=== PATIENT | female | born 1995 | race Caucasian/White ===

== ENCOUNTER 2016-10-26 08:48 | Emergency (ER) | payer BC ==
[2016-10-26 09:16] VITALS: BP 127/75
--- NOTE | 2016-10-26 10:34 | UC ---
Shoulder Pain HPI - HPI Summary HPI Summary: Intermittent left shoulder , back wrist and arm pain no chest, abd, urinary pain or SOB or fever, no n/v/d---Does do repetitive work at a ho register, boy friend has had a viral illness - History of Current Complaint Chief Complaint: UCUpperExtremity Stated Complaint: LEFT SHOULDER PAIN Time Seen by Provider: 10/26/16 10:19 Hx Obtained From: Patient Hx Last Menstrual Period: unknown ?: No Onset/Duration: Gradual Onset, Lasting Days, Still Present Timing: Intermittent Episode Lasting - fleeting episodes Severity Initially: Mild Severity Currently: Mild Location Of Pain: Is Discrete @ - as described Pain Intensity: 3 Pain Scale Used: 0-10 Numeric Character: Aching Aggravating Factor(s): Movement Alleviating Factor(s): Nothing Associated Signs And Symptoms: Positive: Negative Related History: Dominant Hand Right - Risk Factors Non-Orthopedic Risk Factor: Negative DVT Risk Factors: Estrogen Septic Arthritis Risk Factor: Negative - Allergies/Home Medications Allergies/Adverse Reactions: Allergies Allergy/AdvReac Type Severity Reaction Status Date / Time Penicillins Allergy Hives Verified 10/26/16 09:09 Home Medications: Home Medications Fluticasone NASAL SPRAY 50MCG* [Flonase NASAL SPRAY 50MCG*] 2 spray BOTH NARES DAILY PRN 10/26/16 [History Confirmed 10/26/16] Medroxyprogesterone Acetate (A [Depo-Provera] 400 mg IM ONCE 10/26/16 [History Confirmed 10/26/16] PMH/Surg Hx/FS Hx/Imm Hx Previously Healthy: Yes - Surgical History Surgical History: None - Family History Known Family History: Positive: None Family History: no family history of cardio vascular or bleeding disorders - Social History Occupation: Employed Full-time - casino cashier at [employer] Lives: With Family Alcohol Use: None Substance Use Type: None Smoking Status (MU): Never Smoked Tobacco - Immunization History Most Recent Influenza Vaccination: unsure. Review of Systems Constitutional: Negative Skin: Negative, Rash ENT: Negative Respiratory: Negative Cardiovascular: Negative Gastrointestinal: Negative Genitourinary: Negative Motor: Negative Neurovascular: Negative Musculoskeletal: Arthralgia Neurological: Negative Psychological: Negative All Other Systems Reviewed And Are Negative: Yes Physical Exam Triage Information Reviewed: Yes Appearance: Well-Appearing, No Pain Distress, Well-Nourished Vital Signs: Initial Vital Signs Temp 98.4 F 10/26/16 09:10 Pulse 90 10/26/16 09:10 Resp 14 10/26/16 09:10 BP 127/75 10/26/16 09:10 Pulse Ox 100 10/26/16 09:10 Vital Signs Reviewed: Yes Eye Exam: Normal Eyes: Positive: Conjunctiva Clear ENT Exam: Normal ENT: Positive: Normal ENT inspection, Hearing grossly normal, Pharynx normal, TMs normal. Negative: Nasal congestion, Nasal drainage, Tonsillar swelling, Tonsillar exudate, Trismus, Muffled/hoarse voice Neck exam: Normal Neck: Positive: Supple, Nontender, No Lymphadenopathy Respiratory Exam: Normal Respiratory: Positive: Chest non-tender, Lungs clear, Normal breath sounds, No respiratory distress, No accessory muscle use Cardiovascular Exam: Normal Cardiovascular: Positive: RRR, No Murmur, Pulses Normal, Brisk Capillary Refill Musculoskeletal Exam: Normal Musculoskeletal: Positive: Strength Intact, ROM Intact, No Edema Neurological Exam: Normal Neurological: Positive: Alert, Muscle Tone Normal Psychological Exam: Normal Skin Exam: Normal Shoulder Course/Dx - Course Course Of Treatment: Heat, ibuprofen, increase fluids, follow with pcp re-check prn - Differential Dx/Diagnosis Differential Diagnosis/HQI/PQRI: Rotator Cuff Injury, Tendonitis, Other - myalgia Provider Diagnoses: Myalgia Discharge - Discharge Plan Condition: Stable Disposition: HOME Prescriptions: Ibuprofen TAB* [Motrin TAB* 800 MG] 800 mg PO Q8H PRN #40 tab PRN Reason: Pain Patient Education Materials: Ibuprofen (By mouth), Musculoskeletal Pain (ED), Heat Pack Application (ED) Referrals: Rissa Li MD [Primary Care Provider] - 3 Days
== END 2016-10-26 10:33 | disposition home or self-care (01) ==
LOC: UCCORT 08:48
DX: S46.902A Unspecified injury of unspecified muscle, fascia and tendon at shoulder and upper arm level, left arm, initial encounter (principal); S66.802A Unspecified injury of other specified muscles, fascia and tendons at wrist and hand level, left hand, initial encounter; S29.002A Unspecified injury of muscle and tendon of back wall of thorax, initial encounter; X50.3XXA Overexertion from repetitive movements, initial encounter; M79.1 Myalgia; Z88.0 Allergy status to penicillin
CPT/HCPCS: 99212; G0463

== ENCOUNTER 2017-01-26 15:34 | Emergency (ER) | payer BC ==
[2017-01-26 15:44] VITALS: BP 123/65
--- NOTE | 2017-01-26 16:24 | UC ---
Abdominal Pain Female HPI - HPI Summary HPI Summary: Pain in L lateral abdomen and in back, only notices when she is moving or lifting things. First noticed 4 days ago, denies known injury. Is worried about appendix as her coworkers told her it was on her L side. No fever, vomiting, diarrhea, or pain at rest. Normal appetite. - History of Current Complaint Chief Complaint: UCAbdominalPain Stated Complaint: PAIN LEFT SIDE Time Seen by Provider: 01/26/17 16:00 Hx Obtained From: Patient Hx Last Menstrual Period: unknown ?: No Onset/Duration: Gradual Onset, Lasting Days Timing: Intermittent Episodes Lasting: - sec Severity Initially: Mild Severity Currently: Mild Location: Other - L side of abdomen Radiates: Yes Radiates to: Back Character: Sharp - brief Aggravating Factor(s): Movement Alleviating Factor(s): Nothing Associated Signs and Symptoms: Positive: Back Pain. Negative: Fever, Cough, Constipation, Blood in Stool, Urinary Symptoms, Decreased Appetite, Vaginal Bleeding, Vaginal Discharge, Nausea, Vomiting Allergies/Adverse Reactions: Allergies Allergy/AdvReac Type Severity Reaction Status Date / Time Penicillins Allergy Hives Verified 01/26/17 15:44 PMH/Surg Hx/FS Hx/Imm Hx Previously Healthy: Yes - Surgical History Surgical History: None - Family History Known Family History: Positive: None Family History: no family history of cardio vascular or bleeding disorders - Social History Occupation: Employed Part-time Alcohol Use: None Substance Use Type: None Smoking Status (MU): Never Smoked Tobacco - Immunization History Most Recent Influenza Vaccination: unsure. Review of Systems Constitutional: Negative Skin: Negative Eyes: Negative ENT: Negative Respiratory: Negative Cardiovascular: Negative Gastrointestinal: Negative Genitourinary: Negative Motor: Negative Neurovascular: Negative Musculoskeletal: Negative Neurological: Negative Psychological: Negative All Other Systems Reviewed And Are Negative: Yes Physical Exam Triage Information Reviewed: Yes Appearance: Well-Appearing, No Pain Distress, Well-Nourished Vital Signs: Initial Vital Signs Temp 98.4 F 01/26/17 15:39 Pulse 95 01/26/17 15:39 Resp 16 01/26/17 15:39 BP 123/65 01/26/17 15:39 Pulse Ox 100 01/26/17 15:39 Vital Signs Reviewed: Yes Eye Exam: Normal Eyes: Positive: Conjunctiva Clear ENT Exam: Normal ENT: Positive: Normal ENT inspection, Hearing grossly normal, Pharynx normal, TMs normal Dental Exam: Normal Neck exam: Normal Respiratory Exam: Normal Respiratory: Positive: Chest non-tender, Lungs clear, Normal breath sounds, No respiratory distress, No accessory muscle use Cardiovascular Exam: Normal Cardiovascular: Positive: RRR, No Murmur Abdomen Description: Positive: Nontender - mild discomfort with palpating L pblique muscle, No Organomegaly, Soft. Negative: CVA Tenderness (R), CVA Tenderness (L), Distended, Guarding Musculoskeletal Exam: Normal Musculoskeletal: Positive: Strength Intact, ROM Intact Neurological Exam: Normal Neurological: Positive: Alert Psychological Exam: Normal Skin Exam: Normal Abd Pain Female Course/Dx - Differential Dx/Diagnosis Provider Diagnoses: L abdominal muscle strain. elevated blood pressure due to discomfort Discharge - Discharge Plan Condition: Stable Disposition: HOME Patient Education Materials: Muscle Strain (ED) Referrals: Rissa Li MD [Primary Care Provider] - Additional Instructions: As we discussed, there were no worrisome symptoms for infection or organ problems. Though your exam suggests a muscle or tendon strain, you should go right to the emergency department if you develop fever, severe pain, vomiting, or if you otherwise worsen. We have NOT ruled out severe problems.
== END 2017-01-26 16:39 | disposition home or self-care (01) ==
LOC: UCCORT 15:34
DX: S39.011A Strain of muscle, fascia and tendon of abdomen, initial encounter (principal); X58.XXXA Exposure to other specified factors, initial encounter; Y93.9 Activity, unspecified; Y92.9 Unspecified place or not applicable; R03.0 Elevated blood-pressure reading, without diagnosis of hypertension; Z32.02 Encounter for pregnancy test, result negative; Z88.0 Allergy status to penicillin
CPT/HCPCS: 81003; 84702; 99211; G0463

== ENCOUNTER 2017-03-11 15:04 | Emergency (ER) | payer BC ==
[2017-03-11 15:54] VITALS: BP 125/66
--- NOTE | 2017-03-11 16:12 | UC ---
Throat Pain/Nasal Herve HPI - HPI Summary HPI Summary: complaint of feeling pressure in the front and top of her head since 03/07/17 nasal congestion and PND running down the back of her throat denies cough, sore throat, ear pain , fever denies headache denies dizziness feels like there is a bump on the back of her head hit head in the head on 02/25/17 by a table and was seen at [facility] - discharged after evaluation took some OTC sinus medication on saturday with relief - History of Current Complaint Chief Complaint: UCGeneralIllness Stated Complaint: HEAD PRESSURE-SINUSES? Time Seen by Provider: 03/11/17 16:02 Hx Obtained From: Patient, Family/Tai Chi Instructor Hx Last Menstrual Period: has been on Depo; last inj. 10/2016 - Allergies/Home Medications Allergies/Adverse Reactions: Allergies Allergy/AdvReac Type Severity Reaction Status Date / Time Penicillins Allergy Hives Verified 03/11/17 15:54 Home Medications: Home Medications SUMAtriptan TAB* [Imitrex TAB*] 50 mg PO SEE INSTRUCTIONS PRN 03/11/17 [History Confirmed 03/11/17] PMH/Surg Hx/FS Hx/Imm Hx Previously Healthy: No - head injutry - Surgical History Surgical History: None - Family History Known Family History: Positive: None Negative: Cardiac Disease, Hypertension, Diabetes Family History: no family history of cardio vascular or bleeding disorders - Social History Occupation: Employed Full-time Lives: With Family Alcohol Use: Occasionally Substance Use Type: None Smoking Status (MU): Never Smoked Tobacco - Immunization History Most Recent Influenza Vaccination: unsure. Review of Systems Constitutional: Negative Skin: Negative Eyes: Negative ENT: Ear Ache, Nasal Discharge Respiratory: Negative Cardiovascular: Negative Gastrointestinal: Negative Genitourinary: Negative Motor: Negative Neurovascular: Negative Musculoskeletal: Negative Neurological: Headache Psychological: Negative All Other Systems Reviewed And Are Negative: Yes Physical Exam Triage Information Reviewed: Yes Appearance: No Pain Distress, Well-Nourished Vital Signs: Initial Vital Signs Temp 98.8 F 03/11/17 15:48 Pulse 93 03/11/17 15:48 Resp 17 03/11/17 15:48 BP 125/66 03/11/17 15:48 Pulse Ox 100 03/11/17 15:48 Vital Signs Reviewed: Yes Eyes: Positive: Conjunctiva Clear ENT: Positive: Pharyngeal erythema, Nasal congestion, Nasal drainage, TM bulging - both, Other: - EOMI, head- non tendern throughout. Negative: TM red, Tonsillar swelling, Tonsillar exudate Neck: Positive: No Lymphadenopathy Respiratory: Positive: Lungs clear, Normal breath sounds, No respiratory distress, No accessory muscle use Cardiovascular: Positive: RRR, No Murmur, Pulses Normal Abdomen Description: Positive: Nontender, Soft Bowel Sounds: Positive: Present Musculoskeletal Exam: Normal Neurological: Positive: Alert, Other: - negative [place] Psychological Exam: Normal Skin Exam: Normal Throat Pain/Nasal Course/Dx - Course Course Of Treatment: exam completed. eustchion tube dysfunction adn possible seasonal allergies. pt anxious d/t head injury 2 weesk ago- discussed s/s of head injury and concusions- no concerning symptoms at thia time. will followup with PCP 03/13/17 - Differential Dx/Diagnosis Provider Diagnoses: eustachion tube dysfunction bilateral Discharge - Discharge Plan Condition: Stable Disposition: HOME Prescriptions: Fluticasone NASAL SPRAY 50MCG* [Flonase NASAL SPRAY 50MCG*] 2 spray BOTH NARES DAILY #1 btl Patient Education Materials: Head Injury (ED), Fluticasone (Into the nose) Referrals: Rissa Li MD [Primary Care Provider] - Additional Instructions: Please start flonase as directed Increase fluids and rest Take acetaminophen or ibuprofen for pain Please review your discharge instructions. If your symptoms do not improve please call your primary care provider or return to urgent care.
== END 2017-03-11 16:37 | disposition home or self-care (01) ==
LOC: UCCORT 15:04
DX: H69.83 Other specified disorders of Eustachian tube, bilateral (principal)
CPT/HCPCS: 99212; G0463

== ENCOUNTER 2017-07-12 09:39 | Emergency (ER) | payer BC ==
[2017-07-12 10:23] VITALS: BP 108/68
--- NOTE | 2017-07-12 11:04 | UC ---
Complaint Female HPI - HPI Summary HPI Summary: Patient presents with pain in the LLQ with urination, she is on Depo and has spotting on and off, the pain has been on and off in the left flank and LLQ for the past few days as well. Denies any blood with BM although has had some increased Pain with BM's. - History Of Current Complaint Chief Complaint: UCGU Stated Complaint: URINARY Time Seen by Provider: 07/12/17 10:26 Hx Obtained From: Patient Hx Last Menstrual Period: 07/01/17 ?: No Onset/Duration: Sudden Onset, Lasting Days Timing: Constant - dull ache with sharp pain Severity Initially: Moderate Severity Currently: Moderate Character: Sharp, Dull Aggravating Factor(s): Urination Associated Signs And Symptoms: Positive: Back Pain - Allergies/Home Medications Allergies/Adverse Reactions: Allergies Allergy/AdvReac Type Severity Reaction Status Date / Time Penicillins Allergy Hives Verified 07/12/17 10:16 PMH/Surg Hx/FS Hx/Imm Hx Previously Healthy: Yes - Surgical History Surgical History: None - Family History Known Family History: Positive: None Negative: Cardiac Disease, Hypertension, Diabetes Family History: no family history of cardio vascular or bleeding disorders - Social History Alcohol Use: Rare Substance Use Type: None Smoking Status (MU): Never Smoked Tobacco - Immunization History Most Recent Influenza Vaccination: none 2017 Review of Systems Constitutional: Negative Skin: Negative Eyes: Negative ENT: Negative Respiratory: Negative Cardiovascular: Negative Gastrointestinal: Abdominal Pain Genitourinary: Dysuria, Hematuria Motor: Negative Neurovascular: Negative Musculoskeletal: Negative Neurological: Negative Psychological: Negative Is Patient Immunocompromised?: No All Other Systems Reviewed And Are Negative: Yes Physical Exam Triage Information Reviewed: Yes Appearance: Well-Appearing, Well-Nourished, Pain Distress Vital Signs: Initial Vital Signs Temp 97.9 F 07/12/17 10:17 Pulse 87 07/12/17 10:17 Resp 16 07/12/17 10:17 BP 108/68 07/12/17 10:17 Pulse Ox 100 07/12/17 10:17 Vital Signs Reviewed: Yes Eye Exam: Normal ENT Exam: Normal ENT: Positive: Normal ENT inspection, Hearing grossly normal, Pharynx normal Dental Exam: Normal Neck exam: Normal Neck: Positive: Supple, Nontender, No Lymphadenopathy Respiratory Exam: Normal Respiratory: Positive: Chest non-tender, Lungs clear, Normal breath sounds Cardiovascular Exam: Normal Cardiovascular: Positive: RRR, No Murmur, Pulses Normal Abdomen Description: Positive: CVA Tenderness (R) - neg, neg psoas sign or rebound tenderness, CVA Tenderness (L) - pos, Other: - LLQ tenderness, no masses palpable Bowel Sounds: Positive: Present Musculoskeletal Exam: Normal Musculoskeletal: Positive: Strength Intact, ROM Intact, No Edema Neurological Exam: Normal Neurological: Positive: Alert, Muscle Tone Normal Psychological Exam: Normal Skin Exam: Normal Complaint Female Dx - Course Course Of Treatment: Hx obtained, exam performed ,meds reviewed, CT of abdomen/ pelvis, neg for hydronephrosis and Renal stone, did show a Left ovarian cyst. recommend follow up with her GYno - Differential Dx/Diagnosis Differential Diagnosis/HQI/PQRI: Ovarian Cyst, Renal Colic, Ureteral Stone, Urinary Tract Infection, Other - Cronhnes IBS Provider Diagnoses: LLQ pain. left ovarian cyst Discharge - Discharge Plan Condition: Stable Disposition: HOME Patient Education Materials: Ovarian Cyst (ED) Referrals: Rissa Li MD [Primary Care Provider] - Additional Instructions: 1. follow up with your doctor, for monitoring of the cyst 2. Your UA was negative for infection 3. No renal stone found on the CT
--- NOTE | 2017-07-12 11:32 | RAD ---
CLINICAL HISTORY: pain, hematuria COMPARISON: None TECHNIQUE: Multiple contiguous axial CT scans were obtained of the abdomen and pelvis, without intravenous contrast enhancement. Coronal and sagittal multiplanar reformations are submitted for review. Oral contrast was not administered. FINDINGS: The study is limited by the lack of intravenous contrast. This limits evaluation of the solid organs and vasculature. LUNG BASES: The lung bases are clear. LIVER: The liver is normal in shape, size, contour, and attenuation. BILE DUCTS: There is no intrahepatic or extrahepatic biliary dilatation. GALLBLADDER: The gallbladder is normal, without pericholecystic inflammatory change. PANCREAS: The pancreas is normal, without mass or ductal dilatation. SPLEEN: Normal in size and appearance. UPPER GI TRACT: Evaluation of the gastrointestinal tract is limited by incomplete gastric distention. The upper GI tract is unremarkable. SMALL BOWEL AND MESENTERY: The small bowel is normal in contour, course, and caliber. There is no obstruction or dilatation. COLON: The colon is normal in contour, course, caliber. There is no pericolonic inflammatory change. There is a tubular, vermiform, hollow viscus that is blind ending, and originates from the cecum, consistent with a normal appendix. There is no periappendiceal inflammatory change. This best seen on axial images 89 through 100 ADRENALS: Normal bilaterally. KIDNEYS: The kidneys are normal in shape, size, contour, and axis. There is no hydronephrosis or nephrolithiasis. BLADDER: The bladder is smooth in contour. PELVIC ORGANS: There is a 3.4 cm cyst of the left ovary measuring simple fluid in attenuation. The pelvic organs are otherwise unremarkable. AORTA: The aorta is normal. IVC: Unremarkable LYMPH NODES: There is no lymphadenopathy by size criteria. ABDOMINAL WALL: There is no evidence for abdominal wall hernia. BONES AND SOFT TISSUES: The bones and soft tissues are unremarkable. OTHER: None IMPRESSION: 1. NO HYDRONEPHROSIS OR NEPHROLITHIASIS. 2. 2.4 CM SIMPLE LEFT OVARIAN CYST.
== END 2017-07-12 11:56 | disposition home or self-care (01) ==
LOC: UCCORT 09:39
DX: N83.202 Unspecified ovarian cyst, left side (principal); Z32.02 Encounter for pregnancy test, result negative; Z88.0 Allergy status to penicillin
CPT/HCPCS: 74176; 81003; 84702; 99211; G0463

== ENCOUNTER 2017-08-25 18:19 | Emergency (ER) | payer BC ==
[2017-08-25 18:35] VITALS: BP 133/68
--- NOTE | 2017-08-25 18:40 | UC ---
Cardiac HPI - HPI Summary HPI Summary: 22 year old female presents left shoulder pain and chest pressure. - History of Current Complaint Chief Complaint: UCUpperExtremity Stated Complaint: LEFT SHOULDER/ARM PAIN Time Seen by Provider: 08/25/17 18:25 Hx Obtained From: Patient Hx Last Menstrual Period: 08/20/17 Onset/Duration: Sudden Onset Initial Severity: Moderate Current Severity: Moderate Chest Pain Location: Mid Sternal - Allergy/Home Medications Allergies/Adverse Reactions: Allergies Allergy/AdvReac Type Severity Reaction Status Date / Time Penicillins Allergy Hives Verified 08/25/17 18:28 Home Medications: Home Medications ALPRAZolam TAB* [Xanax TAB*] 0.5 mg TID PRN 08/25/17 [History Confirmed 08/25/17 ] Clindamycin HCl [Clindamycin 150 MG CAP*] 300 mg Q6HR 08/25/17 [History Confirmed 08/25/17] Divalproex DR TAB(*) [Depakote DR TAB(*)] 1 tab DAILY 08/25/17 [History Confirmed 08/25/17] PMH/Surg Hx/FS Hx/Imm Hx Previously Healthy: Yes - Surgical History Surgical History: None - Family History Known Family History: Positive: None Negative: Cardiac Disease, Hypertension, Diabetes Family History: no family history of cardio vascular or bleeding disorders - Social History Alcohol Use: None Substance Use Type: None Smoking Status (MU): Never Smoked Tobacco - Immunization History Most Recent Influenza Vaccination: no Review of Systems Constitutional: Negative Skin: Negative Eyes: Negative ENT: Negative Respiratory: Negative Cardiovascular: Chest Pain Gastrointestinal: Negative Genitourinary: Negative Motor: Negative Neurovascular: Negative Musculoskeletal: Other: - left shoulder Neurological: Negative Psychological: Negative All Other Systems Reviewed And Are Negative: Yes Physical Exam Triage Information Reviewed: Yes Vital Signs: Initial Vital Signs Temp 36.6 C 08/25/17 18:30 Pulse 91 08/25/17 18:30 Resp 16 08/25/17 18:30 BP 133/68 08/25/17 18:30 Pulse Ox 100 08/25/17 18:30 Vital Signs Reviewed: Yes Eye Exam: Normal ENT Exam: Normal Dental Exam: Normal Neck exam: Normal Neck: Positive: 1 Respiratory Exam: Normal Cardiovascular Exam: Normal Abdominal Exam: Normal Musculoskeletal Exam: Normal Neurological Exam: Normal Psychological Exam: Normal Skin Exam: Normal - Clinical Impression Provider Diagnoses: chest pain Discharge - Discharge Plan Condition: Stable Disposition: OTHER Discharge Disposition Comment: patient suggested to go to the er. Patient Education Materials: Chest Pain (ED) Referrals: YOMI Meza [Primary Care Provider] - Additional Instructions: patient suggested to go to the er for chest pain. spoke to zara
== END 2017-08-25 18:53 ==
LOC: UCCORT 18:19
DX: R07.89 Other chest pain (principal); M25.512 Pain in left shoulder; Z88.0 Allergy status to penicillin
CPT/HCPCS: 93005; 99212; G0463

== ENCOUNTER 2019-03-21 11:46 | Emergency (ER) | payer SELFPAY ==
[2019-03-21 12:41] VITALS: BP 111/69
--- NOTE | 2019-03-21 12:43 | UC ---
Throat Pain/Nasal Herve HPI - HPI Summary HPI Summary: 24 y/o female presents to the urgent care c/o sinus congestion w/ pressure and pain for the past 3 days. Nasal discharge and PND is clear. No sure it she has seasonal allergies. Left ear pain this morning. Today she got her period and she had RT side pelvic cramping pain and she took a Follansbee around 0830Am which was Rx by her Orthopedic surgeon for her RT ACL surgery and now pain is gone. Sinus pain is 2/10. Pt denies PALOMINO, fever, cough, SOB, wheezing, chest pain , N/V/d. - History of Current Complaint Chief Complaint: UCAbdominalPain Stated Complaint: UPSET STOMACH,SINUS CONGESTION Time Seen by Provider: 03/21/19 12:41 Hx Obtained From: Patient Hx Last Menstrual Period: 03/21/19 ?: No - today w/ her period Onset/Duration: Gradual Onset, Lasting Days - 3 days of clearn nasal congestion , Still Present Severity: Mild Pain Intensity: 2 Pain Scale Used: 0-10 Numeric Cough: None Associated Signs & Symptoms: Positive: Sinus Discomfort, Nasal Discharge - clear. Negative: Wheezing, Fever Related History: Seasonal Allergies - Epiglottits Risk Factors Epiglottis Risk Factors: Negative - Allergies/Home Medications Allergies/Adverse Reactions: Allergies Allergy/AdvReac Type Severity Reaction Status Date / Time Penicillins Allergy Hives Verified 03/21/19 12:33 Home Medications: Home Medications HYDROcodone/ACETAMIN 5-325 MG* [Follansbee 5-325 TAB*] 1 tab PO Q4H PRN 03/21/19 [ History Confirmed 03/21/19] Sertraline* [Zoloft*] 50 mg PO QAM 03/21/19 [History Confirmed 03/21/19] PMH/Surg Hx/FS Hx/Imm Hx Previously Healthy: Yes Psychological History: Anxiety, Depression - Surgical History Surgical History: Yes Surgery Procedure, Year, and Place: RIGHT ACL/MENISCUS REPAIR, JANUARY 2019 - Family History Known Family History: Positive: Diabetes Negative: Cardiac Disease, Hypertension Family History: no family history of cardio vascular or bleeding disorders - Social History Occupation: Student Lives: With Family Alcohol Use: Occasionally Substance Use Type: None Smoking Status (MU): Current Some Day Smoker Type: Cigarettes Amount Used/How Often: 2 CIGS/DAY - Immunization History Most Recent Influenza Vaccination: no Vaccination Up to Date: Yes Review of Systems All Other Systems Reviewed And Are Negative: Yes Constitutional: Positive: Negative Skin: Positive: Negative Eyes: Positive: Negative ENT: Positive: Ear Ache - B/l ear pressure, Nasal Discharge - clear, Sinus Congestion, Sinus Pain/Tenderness, Other - clear PND Respiratory: Positive: Negative Cardiovascular: Positive: Negative Gastrointestinal: Positive: Negative Genitourinary: Positive: Negative Motor: Positive: Negative Neurovascular: Positive: Negative Musculoskeletal: Positive: Negative Neurological: Positive: Negative Psychological: Positive: Negative Is Patient Immunocompromised?: No Physical Exam - Summary Physical Exam Summary: Vitals: reviewed General: Well developed, well-nourished female patient with NAD. Head and face: Normocephalic and atraumatic, Positive tenderness over the frontal and maxillary sinuses.. Eyes: PERRLA, EOMI x 2. Normal conjunctiva. No eye discharge. ENT: Ears and TM with normal limits. Nose: edematous and erythematous nasal mucosa with with yellowish discharge and erythematous mucosa. Pharynx with erythema, no exudate. clear PND Neck: Supple, no JVD, no carotid bruits and no lymphadenopathy. Lungs: clear, no rales, no rhonchi, no wheezes. CVS: RRR, S1 and S2 present no murmurs or gallops appreciated. Abdomen: soft nontender with positive bowel sounds. Extremities: no edema noted. RT knee w/ 3 scars healing well. Pt ambulates w/ help of crutches. Neuro: WNL. Skin: warm and dry Triage Information Reviewed: Yes Vital Signs: Initial Vital Signs Temp 98.2 F 03/21/19 12:34 Pulse 95 03/21/19 12:34 Resp 16 03/21/19 12:34 BP 111/69 03/21/19 12:34 Pulse Ox 100 03/21/19 12:34 Throat Pain/Nasal Course/Dx - Course Course Of Treatment: 24 y/o female presents to the urgent care c/o sinus congestion w/ pressure and pain for the past 3 days. Nasal discharge and PND is clear. No sure it she has seasonal allergies. Left ear pain this morning. Today she got her period and she had RT side pelvic cramping pain and she took a Follansbee around 0830Am which was Rx by her Orthopedic surgeon for her RT ACL surgery and now pain is gone. Sinus pain is 2/10. Pt denies PALOMINO, fever, cough, SOB, wheezing, chest pain , N/V/d. Hx obtained. Pt with allergic sinusitis on examination. Pt Rx Claritin PO, Flonase nasal spray, increase fluid intake, rest and eat well. Take Ibuprofen PO if pelvic pain returns. Pt explained D/C instructions. Pt understood and agreed with plan of care. - Differential Dx/Diagnosis Differential Diagnosis/HQI/PQRI: Laryngitis, Mononucleosis, Pharyngitis, Sinusitis, Tonsillitis, URI Provider Diagnosis: Rhinosinusitis Discharge - Sign-Out/Discharge Documenting (check all that apply): Patient Departure - D/c home All imaging exams completed and their final reports reviewed: No Studies - Discharge Plan Condition: Stable Disposition: HOME Prescriptions: Fluticasone NASAL SPRAY 50MCG* [Flonase NASAL SPRAY 50MCG*] 2 spray BOTH NARES DAILY #1 btl Loratadine/Pseudoephedrine [Loratadine-D 12Hr] 1 tab PO BID #30 tab Patient Education Materials: Rhinosinusitis (ED) Referrals: [facility] [Outside] - 3 Days Additional Instructions: 1- Please increase fluid intake and rest. 2-Use Flonase as directed to help drain fluid. Also buy saline drops to clear sinuses 3-Take Loratadine PO as directed to alleviates sinus congestion 4- Take Ibuprofen PO 800mg PO q6-8hrs after meals if pelvic pain returns. 5-Return to the clinic or PCP in 3 days if symptoms do not improve for further management and treatment - Billing Disposition and Condition Condition: STABLE Disposition: Home - Attestation Statements Provider Attestation: Per institutional requirements, I have reviewed the chart, however, I was not consulted specifically or made aware of this patient by the midlevel provider. I did not personally evaluate, interact with , or disposition this patient.
== END 2019-03-21 13:08 | disposition home or self-care (01) ==
LOC: UCCORT 11:46
DX: J32.9 Chronic sinusitis, unspecified (principal); F41.9 Anxiety disorder, unspecified; F32.9 Major depressive disorder, single episode, unspecified; Z88.0 Allergy status to penicillin; F17.210 Nicotine dependence, cigarettes, uncomplicated
CPT/HCPCS: 99212; G0463

== ENCOUNTER 2019-05-19 20:00 | Emergency (ER) | payer BC, MEDICAID, OTHER ==
[2019-05-19 20:41] VITALS: BP 122/75
--- NOTE | 2019-05-19 20:48 | ED ---
Throat Pain/Nasal Congestion - HPI Summary HPI Summary: 24 yr old female with the complaint of right ear pain, sinus pressure, post nasal drip. Onset of symptoms was 5 days ago. No fever, no chills. No post nasal drip. The patient reports that she feels like her right ear is under water. No other complaints. - History of Current Complaint Chief Complaint: UCRespiratory Time Seen by Provider: 05/19/19 20:42 - Allergies/Home Medications Allergies/Adverse Reactions: Allergies Allergy/AdvReac Type Severity Reaction Status Date / Time Penicillins Allergy Hives Verified 05/19/19 20:32 Home Medications: Home Medications D-Methorphan/PE/Acetaminophen [Vicks Dayquil Cold & Flu] 2 cap PO PRN 05/19/19 [ History] PMH/Surg Hx/FS Hx/Imm Hx - Surgical History Surgery Procedure, Year, and Place: RIGHT ACL/MENISCUS REPAIR, JANUARY 2019 Infectious Disease History: No Infectious Disease History: Denies: Traveled Outside the [place] in Last 30 Days - Family History Known Family History: Positive: None, Diabetes Negative: Cardiac Disease, Hypertension Family History: no family history of cardio vascular or bleeding disorders - Social History Alcohol Use: Occasionally Substance Use Type: Reports: None Smoking Status (MU): Light Every Day Tobacco Smoker Type: Cigarettes Amount Used/How Often: 1/2 PPD Have You Smoked in the Last Year: Yes Review of Systems Positive: Ear Ache, Nasal Discharge All Other Systems Reviewed And Are Negative: Yes Physical Exam Triage Information Reviewed: Yes Vital Signs On Initial Exam: Initial Vitals Temp Pulse Resp BP Pulse Ox 98.5 F 88 16 122/75 98 05/19/19 20:34 05/19/19 20:34 05/19/19 20:34 05/19/19 20:34 05/19/19 20:34 Vital Signs Reviewed: Yes Appearance: Positive: Well-Appearing, No Pain Distress Skin: Positive: Warm, Skin Color Reflects Adequate Perfusion Head/Face: Positive: Normal Head/Face Inspection Eyes: Positive: EOMI, JAYSON ENT: Positive: Normal ENT inspection, TM dull - right, Sinus tenderness Neck: Positive: Nontender Respiratory/Lung Sounds: Positive: Clear to Auscultation, Breath Sounds Present Cardiovascular: Positive: RRR. Negative: Murmur Abdomen Description: Positive: Nontender Musculoskeletal: Positive: Strength/ROM Intact Neurological: Positive: Sensory/Motor Intact, Alert, Oriented to Person Place, Time, CN Intact II-III Psychiatric: Positive: Normal - Jenny Coma Scale Best Eye Response: 4 - Spontaneous Best Motor Response: 6 - Obeys Commands Best Verbal Response: 5 - Oriented Coma Scale Total: 15 Diagnostics - Vital Signs Vital Signs Temp Pulse Resp BP Pulse Ox 05/19/19 20:34 98.5 F 88 16 122/75 98 - Laboratory Lab Statement: Any lab studies that have been ordered have been reviewed, and results considered in the medical decision making process. EENT Course/Dx - Course Course Of Treatment: 24 yr old with bacterial sinusitis, and right om. Rx biaxin - Diagnoses Provider Diagnoses: Sinusitis, Right otitis media Discharge ED - Sign-Out/Discharge Documenting (check all that apply): Patient Departure All imaging exams completed and their final reports reviewed: No Studies - Discharge Plan Condition: Good Disposition: HOME Prescriptions: Clarithromycin TAB* [Biaxin 500 MG TAB*] 500 mg PO BID #20 tab Patient Education Materials: Sinusitis (ED), Ear Infection (ED) Referrals: Mikal Guerrero MD [Primary Care Provider] - 2 Days - Billing Disposition and Condition Condition: GOOD Disposition: Home
== END 2019-05-19 20:54 | disposition home or self-care (01) ==
LOC: UCCORT 20:00
DX: J32.9 Chronic sinusitis, unspecified (principal); H66.91 Otitis media, unspecified, right ear; Z88.0 Allergy status to penicillin; F17.210 Nicotine dependence, cigarettes, uncomplicated
CPT/HCPCS: 99212; G0463

== ENCOUNTER 2023-08-14 08:02 | Inpatient (IN) ==
[2023-08-14] MEDS ORDERED: Lidocaine 1% VIAL 10 MG/ML 30 ML VIAL INJ PRN (09:24)
[2023-08-14] MEDS ORDERED: Lactated Ringers 1000 ml BAG 1,000 ML IV ONE (09:24)
[2023-08-14] MEDS ORDERED: Promethazine INJ(RESTRICTED) 25 MG/ML 1 ml VIAL IV PRN (09:24)
[2023-08-14] MEDS ORDERED: Buffered Lidocaine 1% SYRIN 1 ml INTRADERM ONE (09:24)
[2023-08-14] MEDS ORDERED: miSOPROStol 100 mcg TAB PO ONE ×2 (09:42→14:36)
[2023-08-14] MEDS ORDERED: Lactated Ringers 1000 ml BAG 1,000 ML IV SCH (10:00)
[2023-08-14 11:39] LABS: ABS Eosinophils 0.1 10^3/uL (0.0-0.5); ABS Lymphocytes 1.9 10^3/uL (1.0-4.8); ABS Monocytes 0.7 10^3/uL (0.0-0.9); ABS Neutrophils 7.4 10^3/uL (1.5-7.6); ABS Nucleated RBC 0.01 10^3/ul; Hematocrit 30.5 % (35-45); Hemoglobin 10.7 g/dL (11.5-14.3); Lymphocyte % 18.6 %; Mean Corpuscular Hgb Conc 35.2 g/dL (31-36); Mean Platelet Volume 7.9 fL (7.5-11.2); Nucleated Red Blood Cells % 0.1 %/100WBC (0.0-0.8); Platelet Count 172 10^3/uL (150-450); Red Blood Count 3.47 10^6/uL (3.63-4.92); Red Cell Distribution Width 12.8 % (12-17); White Blood Count 10.2 10^3/uL (3.8-11.8)
[2023-08-14 11:57] LABS: Albumin 3.3 g/dL (3.2-5.2); Albumin/Globulin Ratio 1.2 (1-3); Calcium 8.6 mg/dL (8.6-10.3); Creatinine, Serum 0.63 mg/dL (0.51-0.95); Globulin 2.8 g/dL (2-4); Total Bilirubin 0.6 mg/dL (0.2-1.0); Total Protein 6.1 g/dL (6.4-8.9); Uric Acid 5.5 mg/dL (2.3-6.6); eGFR CKD-EPI 124.6 (>60)
[2023-08-14 12:00] LABS: Urine Benzodiazepine Screen None Detected (None Detect); Urine Opiates Screen None Detected (None Detect)
[2023-08-14] MEDS ORDERED: Nicotine PATCH 21 MG/24 HR PATCH TRANSDERM SCH (16:00)
[2023-08-14] MEDS ORDERED: Dinoprostone 10 MG VAG.SUPP VAGINAL ONE (19:31)
[2023-08-14] MEDS ORDERED: Morphine 10 MG/ML VIAL (1 ml) IV ONE (23:40)
[2023-08-15] MEDS ORDERED: Oxytocin in LR 20,000 MILLI.UNIT/1,000 ML BAG IV ONE (02:19)
[2023-08-15] MEDS ORDERED: Dibucaine 1% OINT 28.35 GM TUBE PR PRN (02:42)
[2023-08-15] MEDS ORDERED: Witch Hazel PAD JAR TOPICAL PRN (02:42)
[2023-08-15] MEDS ORDERED: Oxytocin in LR 20,000 MILLI.UNIT/1,000 ML BAG IV SCH (02:45)
[2023-08-15] MEDS ORDERED: Lactated Ringers 1000 ml BAG 1,000 ML IV SCH (03:00)
[2023-08-16 07:29] LABS: ABS Eosinophils 0.2 10^3/uL (0.0-0.5); ABS Lymphocytes 2.1 10^3/uL (1.0-4.8); ABS Monocytes 0.6 10^3/uL (0.0-0.9); ABS Neutrophils 6.7 10^3/uL (1.5-7.6); ABS Nucleated RBC 0.01 10^3/ul; Eosinophil % 1.8 %; Hematocrit 29.7 % (35-45); Hemoglobin 10.5 g/dL (11.5-14.3); Lymphocyte % 22.3 %; Mean Corpuscular Hgb Conc 35.2 g/dL (31-36); Mean Corpuscular Volume 88.1 fL (80-97); Mean Platelet Volume 7.4 fL (7.5-11.2); Nucleated Red Blood Cells % 0.1 %/100WBC (0.0-0.8); Platelet Count 180 10^3/uL (150-450); Red Blood Count 3.37 10^6/uL (3.63-4.92); White Blood Count 9.6 10^3/uL (3.8-11.8)
[2023-08-16 08:26] VITALS: BP 127/73
== END 2023-08-16 15:45 | disposition home or self-care (01) | DRG 560 ==
LOC: MCHOBOUT 08:02 → MCHOB 09:29
PROVIDERS: ADMIT Registered Nurse; ATTEND Registered Nurse